=== PATIENT | male | born 1980 | race African-American/Black ===

== ENCOUNTER 2021-12-12 10:04 | Emergency (ER) | payer SELFPAY ==
[~2021-12-12] VITALS: Ht 182.9 cm; Wt 72.6 kg
== END 2021-12-12 10:45 | disposition home or self-care (01) ==
LOC: ER 10:11
DX: R45.851 Suicidal ideations (principal); F32.A Depression, unspecified; F15.10 Other stimulant abuse, uncomplicated; F17.210 Nicotine dependence, cigarettes, uncomplicated
CPT/HCPCS: 99283

== ENCOUNTER 2022-04-01 17:12 | Emergency (ER) | payer OTHER ==
[~2022-04-01] VITALS: Ht 182.9 cm; Wt 72.6 kg
[2022-04-01] MEDS ORDERED: MINERAL OIL 132 ML BTL PR ONE (17:45)
[2022-04-01] MEDS ORDERED: CITRATE OF MAGNESIA 300ML BOTTLE PO ONE (17:45)
[2022-04-01] MEDS ORDERED: LACTULOSE SYRUP 20 GM/30 ML UDC PO ONE (19:15)
== END 2022-04-01 19:25 | disposition home or self-care (01) ==
LOC: ER 17:22
DX: K62.89 Other specified diseases of anus and rectum (principal); K59.00 Constipation, unspecified
CPT/HCPCS: 74018; 99282

== ENCOUNTER 2022-12-29 10:26 | Emergency (ER) | payer OTHER ==
[~2022-12-29] VITALS: Ht 182.9 cm; Wt 72.6 kg
[2022-12-29 10:32] VITALS: O2SAT 99
== END 2022-12-29 11:10 | disposition home or self-care (01) ==
LOC: ER 10:29
DX: K62.89 Other specified diseases of anus and rectum (principal)
CPT/HCPCS: 99282